=== PATIENT | male | born 1970 | race Caucasian/White ===

== ENCOUNTER → 2017-04-17 | Outpatient (CLI) | payer BC ==
--- NOTE | 2017-04-17 14:24 | DRAGON STRESS TEST REPORT ---
EXERCISE TREADMILL TEST. DATE OF PROCEDURE: April 17, 2017 INDICATION: Patient with palpitations. Coronary risk factors: Dyslipidemia Resting EKG: Sinus rhythm, no baseline ST segment changes. Increased QRS voltage consistent with LVH. PROCEDURE REPORT: Baseline heart rate: 43 beats per minute with blood pressure of 134/80. Patient had no significant complaints at baseline. Patient was exercised on a standard Ariel protocol. Patient exercised for total of 10 minutes and 23 seconds. Exercise was stopped because of fatigue and shortness of breath. Patient denied any chest arm or neck discomfort during the exercise, at peak exercise or in recovery. If automatic blood pressure recorded and if felt not accurate manual blood pressure then were recorded at appropriate intervals. Peak heart rate: 150 bpm, 92 of predicted maximum. Peak blood pressure: 200/80 mmHg. Double product: Adequate kcal Reason for termination: Dyspnea and fatigue. Exercise EK-1.[address] segment depression noted in inferior and lateral chest leads felt to be positive. CONCLUSIONS: No clinical chest pain or angina with exercise but with positive EKG changes. Probable LVH related but cannot rule out single-vessel disease. Average exercise tolerance. Positive EKG changes with exercise but no clinical chest pain. RECOMMENDATIONS: May consider nuclear stress test or stress echo. Aggressive risk factor modification, medical therapy. Consider cardiology consultation if clinically indicated. Idalmis Vogel M.D., YAR[employer] Operator business education instructor, Board certified in cardiovascular diseases, Nuclear cardiology, Echocardiography Cardiac CT and cardiac MRI Ph. [phone] Ph. [phone] [facility]
== END ==
LOC: SP 09:11
PROVIDERS: ATTEND Physician Assistant
DX: R00.2 Palpitations (principal)
CPT/HCPCS: 93017

== ENCOUNTER 2020-01-17 17:43 | Emergency (ER) | payer OTHER ==
[2020-01-17 17:49] VITALS: BP 148/93
[2020-01-17] MEDS ORDERED: KETOROLAC TROMETHAMINE 60 MG/2 ML SDV IM ONE (17:59)
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
== END 2020-01-17 18:16 | disposition home or self-care (01) ==
LOC: ER 17:43
DX: S40.012A Contusion of left shoulder, initial encounter (principal); S16.1XXA Strain of muscle, fascia and tendon at neck level, initial encounter; M54.2 Cervicalgia; M25.511 Pain in right shoulder; M25.512 Pain in left shoulder; V87.7XXA Person injured in collision between other specified motor vehicles (traffic), initial encounter
CPT/HCPCS: 99283; 96372; J1885